=== PATIENT | female | born 1990 | race Caucasian/White ===

== ENCOUNTER 2019-01-24 04:53 | Inpatient (IN) | payer OTHER ==
[~2019-01-24] VITALS: Ht 162.6 cm; Wt 68.0 kg
[2019-01-24] MEDS ORDERED: LACTATED RINGER'S 1,000 ML IV SCH ×2 (05:01→13:29)
[2019-01-24 05:06] VITALS: Ht 162.6 cm; Wt 68.0 kg
[2019-01-24 05:07] VITALS: BP 122/79; PULSE 82; RESP 20
[2019-01-24] MEDS ORDERED: MISOPROSTOL 200 MCG TAB PR PRN ×2 (05:30→13:30)
[2019-01-24] MEDS ORDERED: OXYTOCIN 30 UNITS/LR 500 ML IV SCH (05:30)
[2019-01-24] MEDS ORDERED: CEFAZOLIN 2 GM/50 ML (PMX) 50 ML IVPB SCH (05:30)
[2019-01-24] MEDS ORDERED: CARBOPROST 250 MCG INJ IM PRN ×2 (05:30→13:30)
[2019-01-24] MEDS ORDERED: OXYTOCIN 30 UNITS/LR 500 ML IV PRN ×2 (05:30→13:30)
[2019-01-24] MEDS ORDERED: METHYLERGONOVINE 0.2 MG INJ IM PRN ×2 (05:30→13:30)
[2019-01-24] MEDS ORDERED: ONDANSETRON 4 MG INJ ONE (05:58)
[2019-01-24] MEDS ORDERED: FAMOTIDINE 20 MG INJ ONE (05:58)
[2019-01-24] MEDS ORDERED: DEXAMETHASONE 4 MG/ML 1 ML INJ ONE (05:58)
[2019-01-24] MEDS ORDERED: MIDAZOLAM 1 MG/ML 2 ML INJ ONE (05:58)
--- NOTE | 2019-01-24 06:29 | PREAC ---
Date/Time of Note Date/Time of Note DATE: 01/24/19 TIME: : Anesthesia Eval and Record Evaluation Time Pre-Procedure Interview DATE: 01/24/19 TIME: : Age 28 Sex female NPO: 6 hrs Preoperative diagnosis transverse Planned procedure emergency c section Past Medical History Past Medical History: None Surgery & Anesthesia Issues No known issue Meds Anticoagulation: No Beta Tanner within 24 hr: No Reason Beta Tanner not given: Pt. not on B-Tanner Current Medications Lactated Ringer's 1,000 ml @ 125 mls/hr Q8H IV Last administered on 01/24/19at 05:11; Admin Dose 125 MLS/HR; Start 01/24/19 at 05:01 Cefazolin Sodium/ Dextrose 50 ml @ 100 mls/hr ONCE IVPB ; Start 01/24/19 at 05:30 Oxytocin/Lactated Ringer's 500 ml @ 125 mls/hr POST IV ; Start 01/24/19 at 05:30 Oxytocin/Lactated Ringer's 500 ml @ 0 mls/hr ONCE PRN IV .VAGINAL BLEEDING; Start 01/24/19 at 05:30 Methylergonovine Maleate (Methergine) 0.2 mg ONCE PRN IM .VAGINAL BLEEDING; Start 01/24/19 at 05:30 Carboprost Tromethamine (Hemabate) 250 mcg ONCE PRN IM .VAGINAL BLEEDING; Start 01/24/19 at 05:30 Misoprostol (Cytotec) 1,000 mcg ONCE PRN [place] .VAGINAL BLEEDING; Start 01/24/19 at 05:30 Meds reviewed: Yes Allergies Coded Allergies: Unknown: Unable to obtain (Unverified , 01/24/19) Allergies Reviewed: Yes Labs/Studies Labs Reviewed: Reviewed by anesthesiologist Result Diagram: 01/24/19 0514 Laboratory Tests 01/24/19 05:14 test: N/A Pre-procedure Exam Last vitals Vital Signs Date Temp Pulse Resp B/P (MAP) Pulse Ox O2 O2 Flow FiO2 Time Delivery Rate 01/24/19 98.2 82 20 122/79 Room Air 05:07 (93) Airway: Adequate mouth opening, Adequate thyromental dist Mallampati: Mallampati II Teeth: Normal Lung: Normal Heart: Normal ASA Physical Status ASA physical status: 2 Emergency: None Pre-operative Attestations Prior to commencing anesthesia and surgery, the patient was re-evaluated, there was verification of: *The patient's identity *The results of appropriate recent lab work and preoperative vital signs *The above evaluation not changing prior to induction *Anesthetic plan, risk benefits, alternative and complications discussed with patient/family; questions answered; patient/family understands, accepts and wishes to proceed. JIMENEZ SALVADOR DO Jan 24, 2019 06:29
[2019-01-24] MEDS ORDERED: HYDROmorphONE 1 MG/5 ML IV SYRINGE IV PRN ×2 (06:30)
[2019-01-24] MEDS ORDERED: MEPERIDINE 25 MG INJ IV PRN (06:30)
[2019-01-24] MEDS ORDERED: DIPHENHYDRAMINE 50 MG INJ IV PRN ×2 (06:30→13:30)
[2019-01-24] MEDS ORDERED: LORAZEPAM 2 MG INJ IV PRN (06:30)
[2019-01-24] MEDS ORDERED: KETOROLAC 30 MG INJ IV PRN (06:30)
[2019-01-24] MEDS ORDERED: ONDANSETRON 4 MG INJ IV PRN (06:30)
--- NOTE | 2019-01-24 07:25 | PAC ---
Date/Time of Note Date/Time of Note DATE: 01/24/19 TIME: 07:24 Post-Anesthesia Notes Post-Anesthesia Note Last documented vital signs Vital Signs Date Temp Pulse Resp B/P (MAP) Pulse Ox O2 O2 Flow FiO2 Time Delivery Rate 01/24/19 98 90 20 105/63 100 Room Air 0720 Activity: WNL Respiratory function: WNL Cardiovascular function: WNL Mental status: Baseline Pain reasonably controlled: Yes Hydration appropriate: Yes Nausea/Vomiting absent: Yes JIMENEZ SALVADOR DO Jan 24, 2019 07:25
[2019-01-24] MEDS: HYDROmorphONE 1 MG/5 ML IV SYRINGE IV PRN ×2 (07:55→09:26)
--- NOTE | 2019-01-24 08:28 | OPPN ---
Date/Time of Note Date/Time of Note DATE: 01/24/19 TIME: 08:01 Operative Report Planned Procedure Procedure date Jan 24, 2019 Procedure(s) primary vertical c/s Performed by see signature line Plasterer Apprentice: BIBI TREVIÑO MD 2nd Plasterer Apprentice none Anesthesiologist: JIMENEZ SALVADOR DO Pre-procedure diagnosis IUP 39w multiple anomalies(diaphragmatic hernia, gastroschisis,pulmonary hyperplasia0 transverse lie/u/s immediate preop in labor [id number] Anesthesia Type: [id number] spinal Post-Procedure Post-procedure diagnosis delivered female with multiple anomalies no gastroschisis thick pea soup mechonium stained amniotic fluid with spiral cord IUGR Findings Live Baby f], Apgars [1] and 3], weight [[id number]], position LSA], [breech] presentation [0]cord. spiral Estimated Blood Loss: 400 - 500 mls Specimen(s) placenta Grafts/Implant(s) none Complication(s) none ANDRZEJ MYERS MD Jan 24, 2019 08:17
--- NOTE | 2019-01-24 08:49 | HP ---
Date/Time of Note Date/Time of Note DATE: 01/24/19 TIME: 08:30 OB - History Hx of Present Free Text/Dictation 28 y.o came in active labor at 39weeks with diagnosis of multiple anomalies of diaphragmatic hernia , pulmonary hypoplasia, .gastroschisis and heart anomalies. from [facility] where she had care, no record is available. came in active labor with VE 4-5//? non vertex with ruptured membrane ,heary thick meconium. u/s revealed transverse lie with head on right . FHT obtained for 1min 150's Emergency primary c/s was prepared with routine process. Chief Complaint: in labor Estimated Due Date: Jan 31, 2019 : 3 Para: 2 Spontaneous : 0 Therapeutic : 0 Care: Other Ultrasounds: Abnormal US findings Obstetrical Complications: None Medical Complications: None Past Family/Social History * Past Medical, Surgical, Family and Obstetric Histories reviewed from chart. Blood Type: Unknown Rubella: unknown RPR/VDRL: Unknown GBS Status: Unknown HBsAG: Unknown OB Admission Exam Vital Signs Vital Signs Vital Signs Date Temp Pulse Resp B/P (MAP) Pulse Ox O2 O2 Flow FiO2 Time Delivery Rate 01/24/19 98.2 82 20 122/79 Room Air 05:07 (93) Physical Exam HEENT: WNL Heart: Rhythm Normal Lungs: Clear, Equal Abdomen: WNL Extremities: Normal Reflexes: Normal Cervical Dilatation: 4cm Effacement: Other (90%) Amniotic Fluid: Thick Meconium Heart Rate: 150's Contractions on Admission: < 5 Minutes Apart Intensity: Firm Last 72 hours Lab Results CBC & BMP 01/24/19 05:14 OB Assessment/Plan Reason for admission: active labor Other Assessment: IUP 39w transverse lie in active labor expected multiple anomalies severe IUGR Plan: Section ANDRZEJ MYERS MD Jan 24, 2019 08:41
[2019-01-24 12:10] VITALS: BP 123/78; PULSE 88; RESP 18
[2019-01-24] MEDS ORDERED: ZOLPIDEM 5 MG TAB PO PRN (13:30)
[2019-01-24] MEDS ORDERED: LANOLIN HPA 1 PKT TOP PRN (13:30)
[2019-01-24] MEDS: OXYCODONE/ACETAMINOPHEN (5/325) TAB PO PRN ×2 (13:39→17:47)
[2019-01-24] MEDS: IBUPROFEN 600 MG TAB PO SCH ×2 (13:44→17:48)
[2019-01-24 15:04] VITALS: BP 115/65; PULSE 85; RESP 17
--- NOTE | 2019-01-24 15:35 | OPR ---
DATE OF OPERATION: 01/24/2019 PREOPERATIVE DIAGNOSIS: , 39 weeks, nondistended. POSTOPERATIVE DIAGNOSES: 1. Antepartum of multiple anomaly including gastroschisis, diaphragmatic hernia, pulmonary hypoplasi a and some heart anomaly with no record from [facility] and transverse lie at 39 weeks and fund al height is very small and appeared to have IUGR. Membrane ruptured, revealed thick meconium fluid and in labor. Cervix open to 4 to 5 cm in transverse lie. heart tone was obtained very briefl y because of unable to detect because of the constant patient movement. POSTOPERATIVE DIAGNOSES: Delivered the 3 pound 10 ounces with markedly depressed about 1 to 2. Amniotic fluid was thick, small amount with meconium stained fluid and there is no abdominal wall d efect which was diagnosed antepartum in full gastroschisis, which is not shown on the fetus. OPERATION PROCEDURE: Primary low transverse section. ANESTHESIA: Spinal. ANESTHESIOLOGIST: Dr. Haq. SURGEON: Maximiliano Clements MD SHOT MAN: Bibi Irwin MD ESTIMATED BLOOD LOSS: Approximately 500 mL. PROCEDURE: Under proper induction of spinal anesthesia, the patient was placed in the frog position. Lomas catheter was introduced into bladder under sterile condition. The patient was repositioned t o supine. Abdominal wall was prepped and draped in usual aseptic manner. A Pfannenstiel incision wa s made. The incision was carried down through the subcutaneous tissue to the anterior recti fascia w hich was incised transversely in length of the incision. Fascial flap was created by blunt and sharp dissection of tendinous attachment. Incision was made generously because of the expecting presentat ion was transverse lie with the abdominal wall defect. Bladder blade was introduced. It was noticed that was a very narrow lower segment and this time because of the transverse lie low vertical incisi on was made for the transverse lie and the incision was made with a scalpel and the amniotic fluid r uptured and revealed thick and pea soup meconium stained fluid, which was a small amount and it was f ound that the shawn breech, so the presenting part was pushed up and disengaged and the grossly retar ded small fetus from left sacral anterior with assisted breech extraction and the mouth and nose were cleaned, delayed the clamp done and cut and handed to the armature winder helper repair who was standing by for furt her care. The fetus did not have abdominal wall defect, but it was markedly depressed and the only 1 to 2 with 3 pound 10 ounces, and the heartbeat initially was not able to be detected because s omehow they had difficulty, but later on it was found. The cord extremely spiral. Good cord blood o btained, a small amount and the placenta was removed manually. Cavity was completely explored and af ter each serial ligation of the uterus. Placenta sent for the pathology exam. Uterus was exterioriz ed. The incision closed with 2-layer starting from the lower end of the incision. There was some ex tension which was separately closed with #1 chromic catgut. The uterine serosa was also closed with the additional 2-0 chromic using GI needle. During the closure the patient was continuously oozing f rom the incision site and the Methergine 0.2 was given to have a uterine contraction, which helped a great deal. After the incision was completely closed and the abdominal cavity was irrigated with brigida er and uterus was relocated into the abdominal cavity, sponge count correct. The incisional site rec hecked, which was intact. A piece of Surgicel was laid on top of the uterine incision. The parietal peritoneum was closed using 0-chromic catgut in continuous manner and muscle closed with 0-chromic c atgut in continuous manner. Fascia closed with #1 Vicryl in continuous manner in 2 segments. The flor bcutaneous tissue irrigated. This layer was approximated with a 2-0 plain in continuous manner. Ski n closed with a 3-0 Monocryl in subcuticular manner. Steri-Strips were applied. A pressure dressing applied. Estimated blood loss approximately 500 mL. The patient withstood procedure well and was s ent to the recovery room in stable condition. Urine output is 100 mL, which was clear. Dictated By: MAXIMILIANO BOWENS/SHAHZAD Conf#: [id number] DID#: [id number] CC: BIBI IRWIN MD;*EndCC*
[2019-01-24] MEDS: SENNA/DOCUSATE NA (8.6MG/50MG) TAB PO SCH (20:27)
[2019-01-24 20:40] VITALS: BP 112/60; PULSE 83; RESP 18
[2019-01-25 02:12] VITALS: BP 113/59; PULSE 82; RESP 20
[2019-01-25] MEDS: IBUPROFEN 600 MG TAB PO SCH ×5 (06:00→23:59)
[2019-01-25] MEDS: OXYCODONE/ACETAMINOPHEN (5/325) TAB PO PRN ×3 (07:07→19:41)
[2019-01-25 07:18] VITALS: BP 109/57; PULSE 85; RESP 17
[2019-01-25] MEDS: SENNA/DOCUSATE NA (8.6MG/50MG) TAB PO SCH ×2 (08:51→19:41)
--- NOTE | 2019-01-25 11:53 | QN ---
Documentation Comment POD# 1 is stable afebrile No VB +Flatus adequate urine Vs stable Gen NAD Abd soft NT ND Dressing to be removed Genitalia No blood at perineum --->Ambulation ROBERT HERNANDEZ M.D. Jan 25, 2019 11:53
[2019-01-25 14:38] VITALS: BP 107/58; PULSE 100; RESP 17
[2019-01-25 19:42] VITALS: BP 98/60; PULSE 103; RESP 16
[2019-01-26 01:36] VITALS: BP 122/67; PULSE 90; RESP 16
[2019-01-26] MEDS: OXYCODONE/ACETAMINOPHEN (5/325) TAB PO PRN ×2 (01:46→22:05)
[2019-01-26] MEDS ORDERED: ONDANSETRON 4 MG INJ IV PRN (06:00)
[2019-01-26 07:40] VITALS: BP 107/64; PULSE 84; RESP 18
[2019-01-26] MEDS: SENNA/DOCUSATE NA (8.6MG/50MG) TAB PO SCH ×2 (09:32→22:05)
[2019-01-26] MEDS: IBUPROFEN 600 MG TAB PO SCH ×3 (09:36→17:46)
[2019-01-26 14:41] VITALS: BP 107/58; PULSE 80; RESP 19
--- NOTE | 2019-01-26 20:11 | QN ---
Documentation Comment Postop day #2 Status post primary Patient stable and afebrile Vital signs stable VS - Last 72 Hours, by Label Date Temp Pulse Resp B/P (MAP) Pulse Ox O2 O2 Flow FiO2 Time Delivery Rate 01/26/19 98.2 80 19 107/58 96 14:41 (74) 01/26/19 97.1 84 18 107/64 98 07:40 (78) 01/26/19 98.1 90 16 122/67 97 01:36 (85) 01/25/19 98.4 103 16 98/60 (73) 98 19:42 01/25/19 97.5 100 17 107/58 98 Room Air 14:38 (74) 01/25/19 97.9 85 17 109/57 100 Room Air 07:18 (74) 01/25/19 98.1 82 20 113/59 100 02:12 (77) 01/24/19 98.4 83 18 112/60 99 20:40 (77) 01/24/19 98.2 85 17 115/65 98 Room Air 15:04 (82) 01/24/19 97.8 88 18 123/78 Room Air 12:10 (93) 01/24/19 98.2 82 20 122/79 Room Air 05:07 (93) Hematology - 72 Hrs Test 01/24/19 05:14 01/25/19 04:37 01/26/19 04:45 Hematocrit 32.5 % (37.0-47.0) 23.8 % (37.0-47.0) 24.5 % (37.0-47.0) L #L L Hemoglobin 10.6 7.7 8.0 g/dl (12.0-16.0) L g/dl (12.0-16.0) g/dl (12.0-16.0) #L L Mean Corpuscular 28.0 pg (29.0-33.0) 28.3 28.3 Hemoglobin L pg (29.0-33.0) L pg (29.0-33.0) L Mean Corpuscular 32.6 32.4 32.7 Hemoglobin Concent g/dl (32.0-37.0) g/dl (32.0-37.0) g/dl (32.0-37.0) Mean Corpuscular 86.0 87.5 86.6 Volume fl (82.0-101.0) fl (82.0-101.0) fl (82.0-101.0) Mean Platelet 9.8 fl (7.4-10.4) 10.4 fl (7.4-10.4) 9.9 fl (7.4-10.4) Volume Platelet Count 356 313 360 10^3/UL (140-415) 10^3/UL (140-415) 10^3/UL (140-415) Red Blood Count 3.78 2.72 2.83 10^6/ul (4.20-5.40) 10^6/ul (4.20-5.40 10^6/ul (4.20-5.40 L ) #L ) L Red Cell 14.1 % (11.5-14.5) 14.1 % (11.5-14.5) 14.4 % (11.5-14.5) Distribution Width White Blood Count 18.0 19.0 17.1 10^3/ul (4.8-10.8) 10^3/ul (4.8-10.8) 10^3/ul (4.8-10.8) H H H Abdomen soft, fundus firm Incision clean,dry,intact Extremities nontender Assessment and plan Elevated WBC- repeat CBC in a.m. UA and urine culture to be done Social service consult to be done Encouraged to ambulate Continue with routine postop care BIBI TREVIÑO MD Jan 26, 2019 20:11
[2019-01-26 20:27] VITALS: BP 104/64; PULSE 81; RESP 16
[2019-01-27 01:36] VITALS: BP 105/68; PULSE 81; RESP 18
[2019-01-27] MEDS: IBUPROFEN 600 MG TAB PO SCH ×4 (05:54→12:53)
[2019-01-27 07:57] VITALS: BP 111/67; PULSE 80; RESP 20
[2019-01-27] MEDS: SENNA/DOCUSATE NA (8.6MG/50MG) TAB PO SCH (09:00)
[2019-01-27] MEDS ORDERED: DIPHTH/TET/ACEL PERTUSS (ADULT) 0.5 ML VIAL IM* ONE (09:00)
--- NOTE | 2019-01-27 11:18 | QN ---
Documentation Comment POD#3 is stable afebrile No VB +BM+voids Vs stable Gen NAD Abd soft NT ND Incision intact Genitalia No blood at perineum --->Discharged with precautions ROBERT HERNANDEZ M.D. Jan 27, 2019 11:17
--- NOTE | 2019-01-27 11:19 | DS ---
Date/Time of Note Date/Time of Note DATE: 01/27/19 TIME: 11:18 Discharge Summary Admission/Discharge Info Admit Date/Time Jan 24, 2019 at 05:00 Discharge Date/Time 01/27/2019 Discharge Diagnosis postparum Patient Condition: Good Hospital Course Uneventful for mother Baby--->congenital anomalies---didn't survive Primary Care Provider Care Physician No Primary Pending Labs Laboratory Tests Test 01/27/19 04:51 White Blood Count 12.1 10^3/ul (4.8-10.8) Red Blood Count 3.07 10^6/ul (4.20-5.40) Hemoglobin 8.6 g/dl (12.0-16.0) Hematocrit 26.6 % (37.0-47.0) Mean Corpuscular Volume 86.6 fl (82.0-101.0) Mean Corpuscular Hemoglobin 28.0 pg (29.0-33.0) Mean Corpuscular Hemoglobin Concent 32.3 g/dl (32.0-37.0) Red Cell Distribution Width 14.3 % (11.5-14.5) Platelet Count 405 10^3/UL (140-415) Mean Platelet Volume 9.7 fl (7.4-10.4) Immature Granulocytes % 0.700 % (0.001-0.429) Neutrophils % 58.9 % (39.0-77.0) Lymphocytes % 32.2 % (15.0-51.0) Monocytes % 6.4 % (0.0-11.0) Eosinophils % 1.6 % (0.0-7.0) Basophils % 0.2 % (0.0-2.0) Nucleated Red Blood Cells % 0.0 /100WBC (0.0-0.0) Immature Granulocytes # 0.080 10^3/ul (0.0-0.031) Neutrophils # 7.1 10^3/ul (1.6-7.5) Lymphocytes # 3.9 10^3/ul (0.8-2.9) Monocytes # 0.8 10^3/ul (0.3-0.9) Eosinophils # 0.2 10^3/ul (0.0-0.5) Basophils # 0.0 10^3/ul (0.0-0.1) Nucleated Red Blood Cells # 0.0 10^3/ul (0.0-0.0) ROBERT HERNANDEZ M.D. Jan 27, 2019 11:19
--- NOTE | 2019-01-28 15:20 | DELSUM ---
Delivery Summary A-C Datetime Report Generated by CPN: 01/28/2019 15:20 DELIVERY PERSONNEL Lead Maintenance Technician: NICOLASA MATERNAL INFORMATION Delivery Anesthesia: Spinal Medications in Delivery: SEE ANESTHESIA RECORDS Delivery QBL (ml): 500 Placenta Cultured: No Maternal Complications: Other RN Comments: DIAPHRAGMATIC HERNIA IN BABY, UNDER DEVELOPED LEFT LUNG, "HEART PROBLEM", GASTROSCHISI S LABOR SUMMARY EDC: 01/31/2019 00:00 No. Babies in Womb: 1 Attempted: No Labor Anesthesia: None LABOR INFORMATION Reason for Induction: Not Applicable Onset of Labor: 01/24/2019 04:00 Group B Beta Strep: Done, Result Unknown Antibiotics # of Doses: 1 Antibiotics Time of Last Dose: 01/24/2019 05:55 Steroids Given: None Reason Steroids Not Administered: Not Applicable MEMBRANES Membranes Rupture Method: Spontaneous Rupture of Membranes: 01/24/2019 04:00 Length of Rupture (hr): 2.32 Amniotic Fluid Color: Heavy Meconium Amniotic Fluid Amount: Small Amniotic Fluid Odor: None STAGES OF LABOR Stage 3 hr: 0 Stage 3 min: 2 Total Time in Labor hr: 2 Total Time in Labor min: 21 CSECTION DELIVERY Primary Indication: Breech Presentation Secondary Indication: N/A CSection Urgency: Emergency CSection Incidence: Primary Labor: Labor Elective: N/A CSection Incision: Lower Uterine Transverse BABY A INFORMATION Delivery Date/Time: 01/24/2019 06:19 Method of Delivery: Born in Route : No : N/A Forceps: N/A Vacuum Extraction: N/A Shoulder Dystocia : N/A SHOULDER DYSTOCIA BABY A Delivery Date/Time: 01/24/2019 06:19 PRESENTATION/POSITION BABY A Presentation: Breech Cephalic Presentation: N/A Breech Presentation: Michele PLACENTA INFORMATION BABY A Placenta Delivery Time : 01/24/2019 06:21 Placenta Method of Delivery: Manual Removal Placenta Status: Delivered SCORES BABY A Heart Rate 1 min: Slow, Below 100 bpm Resp Effort 1 min: Absent Reflex Irritability 1 min: No Response Muscle Tone 1 min: Flaccid Color 1 min: Blue/Pale Resuscitation Effort 1 min: Tactile Stimulation; Oxygen; PPV/NCPAP SCORE 1 MIN: 1 Heart Rate 5 min: Slow, Below 100 bpm Resp Effort 5 min: Slow, Irregular Reflex Irritability 5 min: No Response Muscle Tone 5 min: Flaccid Color 5 min: Blue/Pale Resuscitation Effort 5 min: PPV/NCPAP; Endotracheal Intubation; Chest Compression SCORE 5 MIN: 2 Heart Rate 10 min: Slow, Below 100 bpm Resp Effort 10 min: Slow, Irregular Reflex Irritability 10 min: No Response Muscle Tone 10 min: Flaccid Color 10 min: Blue/Pale Resuscitation Effort 10 min: PPV/NCPAP; Endotracheal Intubation; Chest Compression SCORE 10 MIN: 2 INFANT INFORMATION BABY A Gestational Age at Delivery: 39.0 Gestational Status: Full Term- 39- 40.6 Weeks Outcome : Liveborn, with signs of life Condition : Critical Sex: Female IDENTIFICATION/MEDS BABY A ID Band Number: [id number] ID Band Location: Right Leg; Left Arm Sensor Location : Cord Clamp Vitamin K Given : Not Given Erythromycin Given: Not Given WEIGHT/LENGTH BABY A Infant Birthweight (gm): 1650 Infant Weight (lb): 3 Weight (oz): 10 Length (in): 15.50 Infant Length (cm): 39.37 CORD INFORMATION BABY A No. Cord Vessels: 3 Nuchal Cord : N/A Cord Blood Taken: No Infant Suction: Mouth; Nose ASSESSMENT BABY A Complications: Other Complications- Other: reported anomolies per u/s by pt Physical Findings- Other: see NICU record Nurse Informaticist/ALS Called : Yes Transferred To: NICU
== END 2019-01-27 13:55 | disposition home or self-care (01) | DRG 788 ==
LOC: OBT 04:53 → L-D 04:55 → OBT 05:00 → L-D 05:38 → 2NE 11:35
PROVIDERS: ADMIT Obstetrics & Gynecology; ATTEND Obstetrics & Gynecology
PROC: 10D00Z1 Extraction of Products of Conception, Low, Open Approach (ICD-10-PCS; principal; 2019-01-24 05:45)
DX: O35.1XX0 Maternal care for (suspected) chromosomal abnormality in fetus, not applicable or unspecified (principal); Z3A.39 39 weeks gestation of pregnancy; Z37.0 Single live birth
CPT/HCPCS: 76815; 80307; 81001; 85025; 85610; 85730; 86592; 86703; 86803; 86850; 86900; 86901; 87070; 87086; 87340; 88307; 90715; 99464; G0463; J0690; J1100; J1170; J1885; J2210; J2250; J2405; J2590; J7120